=== PATIENT | male | born 1995 | race Asian ===

== ENCOUNTER 2019-04-07 23:13 | Emergency (ER) | payer OTHER ==
--- NOTE | 2019-04-07 23:21 | ED Physician Documentation ---
PD HPI HEENT - Stated complaint Stated Complaint: EAR LAC - History obtained from History obtained from: Patient - History of Present Illness Timing - onset: How many hours ago (1), Today Timing - details: Abrupt onset, Still present Location: Left ear (he was walking by airplane at work and part of the wing edge struck left ear, causing laceration.) Similar symptoms before: Has not had sx before Review of Systems Ears: denies: Loss of hearing, Drainage/discharge Skin: reports: Laceration (s) (A left inner helix portion of the ear showed a small 1-1/2 cm V-shaped laceration which exposed the cartilage. There is no deformity of the architecture or symmetry of the cartilage compared to the other ear. Laceration does not seem to extend to the posterior aspect of the ear matching the area of the wound. There is no foreign body. There is no bleeding at this time.) Neurologic: reports: Other (denies dizziness). denies: Focal weakness, Numbness, Altered mental status, LOC PD PAST MEDICAL HISTORY - Past Medical History Past Medical History: No - Allergies Allergies/Adverse Reactions: Allergies Allergy/AdvReac Type Severity Reaction Status Date / Time No Known Drug Allergies Allergy Verified 04/07/19 23:18 PD ED PE NORMAL - Vitals Vital signs reviewed: Yes - General General: Alert and oriented X 3, No acute distress, Well developed/nourished - HEENT HEENT: No: Ears normal (A left inner helix portion of the ear showed a small 1- 1/2 cm V-shaped laceration which exposed the cartilage. There is no deformity of the architecture or symmetry of the cartilage compared to the other ear. Laceration does not seem to extend to the posterior aspect of the ear matching the area of the wound. There is no foreign body. There is no bleeding at this time.) - Neck Neck: Supple, no meningeal sign, No bony TTP - Cardiac Cardiac: RRR, No murmur - Respiratory Respiratory: Clear bilaterally - Neuro Neuro: Alert and oriented X 3, No motor deficit, No sensory deficit, Normal speech Results - Vitals Vitals: Vital Signs - 24 hr 04/07/19 23:18 Temperature 37 C Heart Rate 63 Respiratory 18 Rate Blood Pressure 137/87 H O2 Saturation 99 Oxygen O2 Source Room air Procedures - Laceration (location) left ear Length in cm: 1.5 Wound type: Stellate, Into subcut fat, Clean Neurovascular status: Sensory intact Anesthesia: Lidocaine 1% with epi Wound Preparation: Irrigated copiously NS, Wound explored, To the base. No: FB identified Skin layer closure: Nylon, Running, Size #-0 - enter number (5), Other (Sutures are placed in the anterior aspect of the wound. There are 2 sutures placed in the posterior area as well. Good closure no foreign bodies noted.) Other: Patient tolerated well, No complications, Tetanus UTD Complexity: Simple PD MEDICAL DECISION MAKING - ED course Complexity details: considered differential (Small laceration but the edges are apart and it does expose the cartilage. I will put in sutures for better wound healing.), d/w patient Departure - Departure Disposition: 01 Home, Self Care Clinical Impression: Ear lobe laceration Qualifiers: Encounter type: initial encounter Laterality: left Qualified Code(s): S01.312A - Laceration without foreign body of left ear, initial encounter Condition: Stable Record reviewed to determine appropriate education?: Yes Instructions: ED Laceration Facial Sutr Tape Follow-Up: HUMBERTO Mendoza [Provider Group] Comments: It is okay to wash and shower. Clean off the wound twice a day with soap and water, or peroxide and water. Apply some antibiotic ointment to it to keep it moist. Also to watch for signs of infection such as purulence, redness or increasing pain. Return to your primary care or the ER at the specified time for suture removal. Suture removal 7 to 8 days. Tylenol or ibuprofen if needed for pains. Discharge Date/Time: 04/08/19 00:03
[2019-04-07 23:22] VITALS: BP 137/87
[2019-04-07] MEDS ORDERED: BACITRACIN OINT TOP STA (23:55)
== END 2019-04-08 00:03 | disposition home or self-care (01) ==
LOC: ED 23:13
DX: S01.312A Laceration without foreign body of left ear, initial encounter (principal); W22.8XXA Striking against or struck by other objects, initial encounter; Y93.89 Activity, other specified; Y92.139 Unspecified place military base as the place of occurrence of the external cause; Y99.1 Military activity; Y99.8 Other external cause status
CPT/HCPCS: 12011; 99282; 99283; A9270

== ENCOUNTER 2019-09-15 13:53 | Emergency (ER) | payer OTHER ==
--- NOTE | 2019-09-15 15:56 | ED Physician Documentation ---
PD HPI MALE - Stated complaint Stated Complaint: MALE - Chief complaint Chief Complaint: General - History obtained from History obtained from: Patient - History of Present Illness Timing - onset: Today Timing - details: Abrupt onset (he says he was cleaning penis in shower and a small portion of the foreskin tore and bled briskly. He was concerned as the torn ends were not connected. Denies other symptoms (rash, discharge).) Associated symptoms: No: Dysuria, Urinary frequency PD HPI MALE CONTRIB FACTORS: Sexually active Similar symptoms before: Has not had sx before Review of Systems : denies: Dysuria, Discharge PD PAST MEDICAL HISTORY - Past Medical History Past Medical History: No - Past Surgical History Past Surgical History: No - Allergies Allergies/Adverse Reactions: Allergies Allergy/AdvReac Type Severity Reaction Status Date / Time No Known Drug Allergies Allergy Verified 09/15/19 14:04 - Social History Does the pt smoke?: No Smoking Status: Never smoker Does the pt drink ETOH?: No Does the pt have substance abuse?: No - Immunizations Immunizations are current?: Yes PD ED PE NORMAL - Vitals Vital signs reviewed: Yes - General General: Alert and oriented X 3, No acute distress, Well developed/nourished - Male Male : Other (uncircumcised male genitalia. The foreskin retracts easily. There is no redness nor adhesions of the foreskin to the glans. There is a small tear of a frenulum preputium, with minimal oozing bleeding right now. ) - Derm Derm: Normal color, Warm and dry Results - Vitals Vitals: Vital Signs - 24 hr 09/15/19 09/15/19 14:01 16:16 Temperature 36.8 C 36.9 C Heart Rate 82 88 Respiratory 22 16 Rate Blood Pressure 150/93 H 140/80 H O2 Saturation 100 97 Oxygen O2 Source Room air PD MEDICAL DECISION MAKING - ED course Complexity details: considered differential (small tear of the frenulum preputium, which will heal without problems. It is only about 3 mm long and will not be a problem (actually loosens the front part of the glans better). Monsels solution dabbed at the point to stop the bleeding, and ointment applied. ), d/w patient Departure - Departure Disposition: 01 Home, Self Care Clinical Impression: Laceration of penis Qualifiers: Encounter type: initial encounter Qualified Code(s): S31.21XA - Laceration without foreign body of penis, initial encounter Condition: Stable Record reviewed to determine appropriate education?: Yes Follow-Up: HUMBERTO Mendoza [Provider Group] Comments: This should heal up okay. Clean the area gently with soap and water 2-3 times a day and apply antibiotic ointment. Recheck if signs of infection. Discharge Date/Time: 09/15/19 16:34
[2019-09-15 16:20] VITALS: BP 140/80
== END 2019-09-15 16:34 | disposition home or self-care (01) ==
LOC: ED 13:53
DX: S31.21XA Laceration without foreign body of penis, initial encounter (principal); X50.9XXA Other and unspecified overexertion or strenuous movements or postures, initial encounter; Y93.E1 Activity, personal bathing and showering
CPT/HCPCS: 99282; 99283